=== PATIENT | female | born 2000 | race Hispanic/Latino ===

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

== ENCOUNTER 2023-06-30 07:02 | Day surgery (SDC) | payer MEDICAID ==
[2023-06-28 10:38] LABS: BASOPHILS # (AUTO) 0.03 K/uL (0.00-0.20); BASOPHILS % (AUTO) 0.3 % (0.0-5.0); EOSINOPHILS % (AUTO) 1.9 % (0.0-8.0); HEMATOCRIT 36.8 % (36-48); IMMATURE GRANULOCYTE ABSOLUTE 0.09 K/uL (0-1); LYMPHOCYTES # (AUTO) 2.9 K/uL (1.0-4.8); LYMPHOCYTES % (AUTO) 28.3 % (21.0-51.0); MEAN CORPUSCULAR HEMOGLOBIN 29.3 pg (27.0-33.0); MEAN CORPUSCULAR HGB CONC 31.8 g/dL (32.0-36.0); MONOCYTES # (AUTO) 0.7 K/uL (0.1-1.0); MONOCYTES % (AUTO) 7.2 % (3.0-13.0); NEUTROPHILS # (AUTO) 6.3 K/uL (1.8-7.7); NEUTROPHILS % (AUTO) 61.4 % (40.0-77.0); PLATELET COUNT (AUTO) 341 K/uL (130-400); RED CELL DISTRIBUTION WIDTH 13.2 % (11.0-15.5); WHITE BLOOD COUNT (AUTO) 10.3 K/uL (4.8-10.8)
[2023-06-28 11:05] VITALS: BP 146/74; PULSE 69; RESP 18
[2023-06-30] VITALS (14 sets, daily range): BP systolic 101–152; BP diastolic 49–86; PULSE 79–103; RESP 14–19
[~2023-06-30] VITALS: Ht 160 cm; Wt 98.4 kg
[2023-06-30] MEDS: CEFAZOLIN SODIUM 2 GM VIAL ONE (07:58)
[2023-06-30] MEDS: LACTATED RINGERS 1000ML 1,000 ML IV ONE (07:59)
[2023-06-30] MEDS ORDERED: MIDAZOLAM HCL 1 MG/ML 2ML VIAL ONE (07:59)
[2023-06-30] MEDS ORDERED: LIDOCAINE PF 100MG/5ML (2%) SYRINGE 5ML ONE (08:09)
[2023-06-30] MEDS ORDERED: PROPOFOL 10 MG/ML 20ML VIAL IV ONE (08:09)
[2023-06-30] MEDS ORDERED: ROCURONIUM BROMIDE 10MG/1ML 5ML VL ONE (08:09)
[2023-06-30] MEDS ORDERED: FENTANYL CITRATE PF 50 MCG/1 ML 2ML VIAL ONE (08:10)
[2023-06-30] MEDS: ONDANSETRON 4MG INJ ONE (09:29)
[2023-06-30] MEDS: MEPERIDINE-PF 25 MG/ML SYG ONE (09:30)
== END 2023-06-30 10:23 | disposition home or self-care (01) ==
LOC: DAH 07:02
PROVIDERS: ATTEND Obstetrics & Gynecology
DX: N92.1 Excessive and frequent menstruation with irregular cycle (principal); N88.8 Other specified noninflammatory disorders of cervix uteri; N84.0 Polyp of corpus uteri; D50.9 Iron deficiency anemia, unspecified; R93.89 Abnormal findings on diagnostic imaging of other specified body structures; F12.90 Cannabis use, unspecified, uncomplicated; E66.9 Obesity, unspecified; Z68.36 Body mass index [BMI] 36.0-36.9, adult; Z72.89 Other problems related to lifestyle; Z87.891 Personal history of nicotine dependence
CPT/HCPCS: 86900; 84703; 85025; 86850; 86901; 36415; 58558; 88305; A6260; A4663; J7030; A4351; A4355; J7120; J3010; J3490 ×2; J2250; J2405; J2175; J0690; A4649; A4930 ×2; A4215; A4223; A4222; A4221; A4600; J2001; J2704